=== PATIENT | female | born 1970 | race Caucasian/White ===

== ENCOUNTER → 2017-07-27 | Day surgery (SDC) | payer BC, OTHER ==
--- NOTE | 2017-07-31 00:28 | OP ---
DATE OF OPERATION: 07/27/2017 PREOPERATIVE DIAGNOSIS: Left breast mass, 4 o'clock, retroareolar. POSTOPERATIVE DIAGNOSIS: Left breast mass, 4 o'clock, retroareolar. PROCEDURE: Left ultrasound guided core biopsy with clip placement. ANESTHESIA: Local. ATTENDING SURGEON: Genevieve Traore M.D. ESTIMATED BLOOD LOSS: Minimal. COMPLICATIONS: None. PROCEDURE: Patient was made aware of the risks and benefits of the procedure and consented. She was placed in the supine position under sterile conditions with 1% lidocaine for local anesthesia. A small anna was made in the skin. Using a 10-gauge suction biopsy device from inferior lateral approach, under ultrasound guidance, multiple cores were obtained and sent to pathology. Likewise, under ultrasound guidance a U-shaped clip was placed into the biopsy region. Well tolerated by patient. Steri-Strips and a sterile bandage were applied. Will contact her with results. GENEVIEVE TRAORE M.D. [id number]
== END | disposition home or self-care (01) ==
LOC: FRADUS-SUR 12:58
PROVIDERS: ATTEND Surgery Surgical Oncology
PROC: 0HBU3ZX Excision of Left Breast, Percutaneous Approach, Diagnostic (ICD-10-PCS; principal; 2017-07-27)
DX: D48.62 Neoplasm of uncertain behavior of left breast (principal)
CPT/HCPCS: 19083; 87899; 88305-TC; 88342-TC; A4648

== ENCOUNTER 2018-02-08 07:33 | Day surgery (SDC) | payer BC, OTHER ==
[2018-02-07 11:09] VITALS: BMI 31.8
[2018-02-08] MEDS ORDERED: PROPOFOL 20 ML ONE ×3 (09:10)
[2018-02-08 10:13] VITALS: TEMP 97.9
[2018-02-08 10:58] VITALS: BP 119/73; PULSE 73
--- NOTE | 2018-02-11 16:18 | PATH ---
Surgical Pathology Report Patient Name: SILVIA ORTIZ [facility]. Rec. #: [id number] /Age/Gender: 1970 (Age: 47) / F Account: [id number] Location: [facility] Taken: 02/08/2018 Received: 02/08/2018 Reported: 02/11/2018 Physicians: Marilyn Caballero M.D. Specimen(s) Received A: BX 2ND PORTION DUODENUM AND BULB B: BX GASTRIC POLYPS C: BX STOMACH D: BX GE JUNCTION E: BX TRANSVERSE COLON POLYP Clinical History Heartburn, dyspepsia, history of colon polyps Postoperative diagnosis: Hiatal hernia, gastritis, GERD, polyp, diverticulosis Final Diagnosis A. SECOND PORTION DUODENUM AND BULB, BIOPSY: DUODENAL MUCOSA WITH MILD CHRONIC DUODENITIS. B. GASTRIC POLYPS, BIOPSY: GASTRIC FUNDIC GLAND POLYP. SEPARATE GASTRIC MUCOSA WITH NO DIAGNOSTIC ABNORMALITIES. IMMUNOSTAIN IS NEGATIVE FOR H. PYLORI ORGANISMS. C. STOMACH, BIOPSY: GASTRIC MUCOSA WITH NO DIAGNOSTIC ABNORMALITIES. IMMUNOSTAIN IS NEGATIVE FOR H. PYLORI ORGANISMS. D. GE JUNCTION, BIOPSY: ESOPHAGEAL (SQUAMOUS) MUCOSAL WITH MILD CHRONIC INFLAMMATION. E. TRANSVERSE COLON POLYP, BIOPSY: HYPERPLASTIC POLYP. Electronically Signed Deborah Novak M.D. Gross Description A. Received in formalin, labeled "second portion of duodenum and bulb" are 3 vizcaino, irregular portions of soft tissue ranging from 0.2-0.4 cm. in greatest dimension. The specimens are submitted in toto in one cassette. B. Received in formalin, labeled "gastric polyps" are 5 vizcaino, irregular portions of soft tissue ranging from 0.2-0.4 cm. in greatest dimension. The specimens are submitted in toto in one cassette. C. Received in formalin, labeled "biopsy stomach" are 4 vizcaino, irregular portions of soft tissue ranging from 0.3-0.4 cm. in greatest dimension. The specimens are submitted in toto in one cassette. D. Received in formalin, labeled "biopsy GE junction" are 2 vizcaino, irregular portions of soft tissue measuring 0.2 and 0.3 cm. in greatest dimension. The specimens are submitted in toto in one cassette. E. Received in formalin, labeled "biopsy polyp transverse colon" are 3 vizcaino, irregular portions of soft tissue ranging from 0.2-0.3 cm. in greatest dimension. The specimens are submitted in toto in one cassette. 02/08/201802/08/2018
== END 2018-02-08 11:07 | disposition home or self-care (01) ==
LOC: JASU-ENDO 07:33
PROVIDERS: ATTEND Internal Medicine Gastroenterology
PROC: 0DB98ZX Excision of Duodenum, Via Natural or Artificial Opening Endoscopic, Diagnostic (ICD-10-PCS; 2018-02-08)
PROC: 0DB68ZX Excision of Stomach, Via Natural or Artificial Opening Endoscopic, Diagnostic (ICD-10-PCS; 2018-02-08)
PROC: 0DB38ZX Excision of Lower Esophagus, Via Natural or Artificial Opening Endoscopic, Diagnostic (ICD-10-PCS; 2018-02-08)
PROC: 0DBL8ZX Excision of Transverse Colon, Via Natural or Artificial Opening Endoscopic, Diagnostic (ICD-10-PCS; principal; 2018-02-08 09:00)
DX: Z12.11 Encounter for screening for malignant neoplasm of colon (principal); Z86.010 Personal history of colon polyps; D12.3 Benign neoplasm of transverse colon; K57.30 Diverticulosis of large intestine without perforation or abscess without bleeding; K64.8 Other hemorrhoids; K21.9 Gastro-esophageal reflux disease without esophagitis; K44.9 Diaphragmatic hernia without obstruction or gangrene; K31.7 Polyp of stomach and duodenum; K29.70 Gastritis, unspecified, without bleeding
CPT/HCPCS: 84703; 88305-TC; 88342-TC

== ENCOUNTER 2019-06-02 08:56 | Emergency (ER) | payer OTHER, BC ==
[2019-06-02 09:06] VITALS: BP 128/65; PULSE 88; TEMP 98.2; BMI 29.0
--- NOTE | 2019-06-02 09:53 | PDOC ---
History of Present Illness - General Chief Complaint: Injury Stated Complaint: LT ANKLE INJURY Time Seen by Provider: 06/02/19 09:26 History Source: Patient - History of Present Illness Occurred: reports: this morning Lower Extremity Pain Location: left: foot Method of Injury: Yes: twisted Past History - Past Medical History Allergies/Adverse Reactions: Allergies Allergy/AdvReac Type Severity Reaction Status Date / Time No Known Allergies Allergy Verified 06/02/19 09:03 Home Medications: Ambulatory Orders Amlodipine Besylate [Norvasc] 2.5 mg PO DAILY tablet 07/21/14 Fluticasone Prop 0.05% Nasal [Flonase -] 1 spray NS DAILY 02/07/18 Hydrochlorothiazide 25 mg PO DAILY 02/07/18 Mag Carb/Aluminum Hydrox/Algin [Gaviscon Liquid] 15 - 30 ml PO Q6H PRN #355 oz 02/08/18 Ranitidine HCl [Zantac] 150 mg PO BID #30 tablet 02/08/18 Ranitidine [Zantac -] 150 mg PO BID #180 tablet 02/08/18 CVA: No COPD: No CHF: No GI Disorders: Yes (COLON POLYPS/ADENOMA, DIVERTICULOSIS, REFLUX) HTN: Yes Thyroid Disease: ( HYPOTHYROIDISM - RESOLVED) - Immunization History Immunization Up to Date: Yes - Psycho Social/Smoking Cessation Hx Smoking History: Never smoked Have you smoked in the past 12 months: No Information on smoking cessation initiated: No Hx Alcohol Use: No Drug/Substance Use Hx: No Substance Use Type: None Review of Systems - Review of Systems Musculoskeletal: Yes: Joint Pain, Joint Swelling *Physical Exam - Vital Signs Last Vital Signs Temp Pulse Resp BP Pulse Ox 98.2 F 88 16 128/65 97 06/02/19 09:03 06/02/19 09:03 06/02/19 09:03 06/02/19 09:03 06/02/19 09:03 - Physical Exam General Appearance: Yes: Appropriately Dressed. No: Apparent Distress HEENT: positive: Normal Voice Neck: positive: Supple Respiratory/Chest: negative: Respiratory Distress Extremity: positive: Normal Inspection, Tender (poorly localized ttp distal aspect of L foot, no swelling, ankle wnl) Integumentary: positive: Dry, Warm Neurologic: positive: Fully Oriented, Alert, Normal Mood/Affect ED Treatment Course - RADIOLOGY Radiology Studies Ordered: Category Date Time Status FOOT-LEFT [RAD] Stat Radiology 06/02/19 09:27 Taken Medical Decision Making - Medical Decision Making 06/02/19 10:37 49-year-old female, no significant history, here with left foot pain after twisting injury at work this a.m. Pain located mostly to the distal aspect of dorsum of foot, hurts to walk. Has since taken Advil see exam L foot sprain XR neg for fx Dc w/ OTC meds prn pain Discharge - Discharge Information Problems reviewed: Yes Clinical Impression/Diagnosis: Foot sprain Qualifiers: Encounter type: initial encounter Laterality: left Qualified Code(s): S93.602A - Unspecified sprain of left foot, initial encounter Condition: Good Disposition: HOME - Follow up/Referral Referrals: Cristian Gomez MD [Primary Care Provider] - - Patient Discharge Instructions Patient Printed Discharge Instructions: DI for Foot Sprain Additional Instructions: Foot x-ray shows no fracture. A foot sprain can take several days to a week or 2 to resolve Take Motrin or Tylenol as needed for the pain - Post Discharge Activity
== END 2019-06-02 09:51 | disposition home or self-care (01) ==
LOC: JERFT 08:56
DX: S93.602A Unspecified sprain of left foot, initial encounter (principal); W01.0XXA Fall on same level from slipping, tripping and stumbling without subsequent striking against object, initial encounter; Y93.01 Activity, walking, marching and hiking; Y92.238 Other place in hospital as the place of occurrence of the external cause; Y99.0 Civilian activity done for income or pay; I10 Essential (primary) hypertension; Z87.19 Personal history of other diseases of the digestive system
CPT/HCPCS: 73630-TC-LT; 99281-25

== ENCOUNTER → 2019-08-22 | Day surgery (SDC) | payer BC, OTHER ==
--- NOTE | 2019-08-25 13:45 | PATH ---
Surgical Pathology Report Patient Name: SILVIA ORTIZ [facility]. Rec. #: [id number] /Age/Gender: 1970 (Age: 49) / F Account: [id number] Location: [facility] Taken: 08/22/2019 Received: 08/22/2019 Reported: 08/25/2019 Physicians: Malathi Michelle M.D. Specimen(s) Received A: LEFT BREAST SPECIMEN - WITH CALCIFICATIONS B: LEFT BREAST SPECIMEN - WITHOUT CALCIFICATIONS Clinical History Nonpalpable lesion Mammographic findings: Microcalcification, suspicious Final Diagnosis A. BREAST, LEFT, WITH CALCIFICATIONS, STEREOTACTIC BIOPSY: ATYPICAL DUCTAL HYPERPLASIA (ADH) IN A BACKGROUND OF COLUMNAR CELL CHANGE WITH ASSOCIATED CALCIFICATIONS. B. BREAST, LEFT, WITHOUT CALCIFICATIONS, STEREOTACTIC BIOPSY: FOCAL ATYPICAL DUCTAL HYPERPLASIA (ADH). Electronically Signed Annie Barnard M.D. Gross Description A. Received in formalin labeled "left breast with calcifications," are 2 vizcaino-yellow, cylindrical portions of fibroadipose tissue averaging 1.8 cm in length and 0.4 cm in diameter. The specimens are submitted in toto in one cassette. B. Received in formalin labeled "left breast without calcifications," are 5 vizcaino-yellow, cylindrical portions of fibroadipose tissue ranging from 2.0-2.9 cm in length and averaging 0.3 cm in diameter. The specimens are submitted in toto in 2 cassettes. Time to formalin fixation: 5 minutes Total formalin fixation time: Approximately 8 hours. 08/22/2019 saudi08/22/2019
== END | disposition home or self-care (01) ==
LOC: FMAMMOTONE 09:03
PROVIDERS: ATTEND Obstetrics & Gynecology
PROC: 0HBU3ZX Excision of Left Breast, Percutaneous Approach, Diagnostic (ICD-10-PCS; principal; 2019-08-22)
DX: N60.92 Unspecified benign mammary dysplasia of left breast (principal); N64.89 Other specified disorders of breast; R92.1 Mammographic calcification found on diagnostic imaging of breast
CPT/HCPCS: 19081; 76098-TC-FY; 87899; 88305-TC; A4648

== ENCOUNTER 2019-09-12 10:31 | Day surgery (SDC) | payer BC ==
--- NOTE | 2019-09-11 10:55 | HP ---
Admitting History and Physical - Primary Care Physician PCP: Genevieve Traore - Admission Chief Complaint: Left breast atypia and calcifications History of Present Illness: 49 year old premenapausal female with recent mammogram 07/2019 showing a cluster of calcifications in the upper outer quadrant left breast. Stereotactic core biopsy 08/22/2019 revealed atypical ductal hyperplasia. History Source: Patient Limitations to Obtaining History: No Limitations - Past Medical History Cardiovascular: Yes: HTN ...LMP: 08/12/19 - Smoking History Smoking history: Never smoked Have you smoked in the past 12 months: No - Alcohol/Substance Use Hx Alcohol Use: Yes (SOCIAL) Home Medications - Allergies Allergies/Adverse Reactions: Allergies Allergy/AdvReac Type Severity Reaction Status Date / Time No Known Allergies Allergy Verified 09/09/19 17:47 - Home Medications Home Medications: Ambulatory Orders Amlodipine Besylate [Norvasc] 2.5 mg PO DAILY tablet 07/21/14 Hydrochlorothiazide 25 mg PO DAILY 02/07/18 Family Medical History Family Hx Cancer: Father (CLL) Physical Examination Constitutional: Yes: Well Nourished, No Distress Breast(s): Yes: Other (Breast are diffusely nodular bilaterally no palpable masses or adenopathy bilaterally) Problem List - Problems (1) Atypical ductal hyperplasia of left breast Problems reviewed: Yes Code(s): N60.92 - UNSPECIFIED BENIGN MAMMARY DYSPLASIA OF LEFT BREAST Assessment/Plan Left breast wide excision with mammogram needle localization
[2019-09-12 11:38] VITALS: BMI 29.2
[2019-09-12] MEDS ORDERED: MIDAZOLAM HCL 2 MG/2 ML SINGLE DOSE VIAL ONE (13:37)
[2019-09-12] MEDS ORDERED: SUCCINYLCHOLINE CHLORIDE 200 MG/10 ML SYRINGE ONE (13:37)
[2019-09-12] MEDS ORDERED: PROPOFOL 20 ML ONE ×2 (13:37)
[2019-09-12] MEDS ORDERED: LIDOCAINE HCL 1%, 10 MG/ML (20ML VIAL) ONE (13:39)
[2019-09-12] MEDS ORDERED: BUPIVACAINE HCL/PF 2.5 MG/ML - 30 ML VIAL IJ ONE (13:39)
[2019-09-12] MEDS ORDERED: oxyCODONE HCL 5 MG TABLET PO PRN ×2 (15:02)
[2019-09-12] MEDS ORDERED: ONDANSETRON 4 MG/2 ML VIAL IVPUSH PRN ×2 (15:02→15:19)
[2019-09-12] MEDS ORDERED: LACTATED RINGERS SOLUTION 1,000 ML IV SCH (15:15)
[2019-09-12] MEDS ORDERED: KETOROLAC TROMETHAMINE 30 MG/1 ML VIAL IVPUSH PRN (15:19)
[2019-09-12] MEDS ORDERED: DEXTROSE 5%-0.45% SALINE 1,000 ML IV SCH (15:30)
[2019-09-12] MEDS ORDERED: KETOROLAC TROMETHAMINE 30 MG/1 ML VIAL ONE (15:41)
[2019-09-12 17:25] VITALS: BP 112/68; PULSE 72; TEMP 97.9
--- NOTE | 2019-09-15 16:09 | OP ---
DATE OF OPERATION: 09/12/2019 PREOPERATIVE DIAGNOSIS: Left breast atypical ductal hyperplasia. POSTOPERATIVE DIAGNOSIS: Left breast atypical ductal hyperplasia. PROCEDURE: Left mammographically localized partial mastectomy. ANESTHESIA: General intubated. ATTENDING SURGEON: Dolores Martin MD [employer]OVEL LOG LOADER OPERATOR: GOOD Quezada ESTIMATED BLOOD LOSS: Minimal. COMPLICATIONS: None. DESCRIPTION OF PROCEDURE: Patient was made aware of the risks and benefits of the procedure and consented. She was placed in supine position after going to Radiology where a needle was placed next to the indexed lesion. After general anesthesia was induced, the patient was intubated. The operative site was prepped and draped in the usual sterile fashion. Curvilinear incision was made adjacent to the wire using electrocautery. Thick skin flaps were made. Using electrocautery, tissues were dissected down to the wire. The needle was drawn through the puncture site and a wire through the wound. Tissues around the wire were then sharply excised and submitted with a short suture superior, long suture lateral. Specimen radiograph confirmed the presence of the indexed lesion. The wound was copiously irrigated with normal saline. Hemostasis maintained by electrocautery. The cavity was then injected with 0.25% bupivacaine. It was then closed with deep 2-0 Vicryl followed by interrupted subdermal 3-0 Vicryl followed by running, subcuticular Monocryl. Steri-Strips and a sterile bandage were then applied, and the patient, having tolerated the procedure well, was transferred to the recovery room in excellent condition. DOLORES CALHOUN M.D. [id number]
--- NOTE | 2019-09-16 16:48 | PATH ---
Surgical Pathology Report Patient Name: SILVIA ORTIZ Med. Rec. #: [id number] /Age/Gender: 1970 (Age: 49) / F Account: [id number] [facility] Taken: 09/12/2019 Received: 09/12/2019 Reported: 09/16/2019 Physicians: Genevieve Traore M.D. Specimen(s) Received LEFT BREAST WIDE EXCISION Clinical History ADH Final Diagnosis Breast, left, wide excision: Benign breast tissue showing proliferative fibrocystic changes including cystic apocrine metaplasia, usual ductal hyperplasia (UDH), stromal fibrosis and columnar cell change with few associated calcifications. No residual atypical ductal hyperplasia (adH) is identified. Comment: See also prior core biopsy (D20-9). Electronically Signed Annie Barnard M.D. Gross Description Received in formalin, labeled "left breast wide excision," is a 2.6 x 2.5 x 2.0 cm. vizcaino-yellow, irregular, portion of fibroadipose tissue with a needle localization wire present. There is a short suture marking the superior aspect and a long suture marking the lateral aspect, per the surgeon. There is no skin present. The specimen is inked as follows: superior and lateral blue; inferior green; medial yellow; anterior red; deep black. The specimen is serially sectioned from medial to lateral. Sectioning reveals abundant dense, white, firm fibrous tissue. No definitive mass is identified. The specimen is entirely and sequentially submitted in 6 cassettes with the medial margin cassette 1 and lateral margin cassette 6. Time to formalin fixation: Not given Total formalin fixation time: Approximately 72 hours DL/09/15/2019 saudi/09/15/2019
== END 2019-09-12 17:15 | disposition home or self-care (01) ==
LOC: FASU 10:31
PROVIDERS: ATTEND Surgery Surgical Oncology
PROC: 0HBU0ZZ Excision of Left Breast, Open Approach (ICD-10-PCS; principal; 2019-09-12 14:31)
DX: N60.12 Diffuse cystic mastopathy of left breast (principal); N60.91 Unspecified benign mammary dysplasia of right breast; N60.32 Fibrosclerosis of left breast; N60.82 Other benign mammary dysplasias of left breast; N64.89 Other specified disorders of breast
CPT/HCPCS: 19281; 76098-TC-FY; 84703; 88307-TC; 94760

== ENCOUNTER 2022-02-06 11:37 | Emergency (ER) | payer BC, OTHER ==
[2022-02-06 11:46] VITALS: BP 125/73; PULSE 88; TEMP 97.9; BMI 28.3
[2022-02-06] MEDS ORDERED: BEBTELOVIMAB (EUA) 175 MG/2 ML VIAL IVPUSH ONE (12:02)
== END 2022-02-06 14:28 | disposition home or self-care (01) ==
LOC: JER 11:37
DX: U07.1 COVID-19 (principal)
CPT/HCPCS: 99284-25; C9803-CS; Q0222; U0003; U0005

== ENCOUNTER 2022-05-31 06:49 | Day surgery (SDC) | payer BC, OTHER ==
[2022-05-29 13:35] VITALS: BMI 30.9
[2022-05-31 11:33] VITALS: TEMP 97.8
[2022-05-31 12:42] VITALS: BP 121/70; PULSE 65; RESP 13
== END 2022-05-31 12:51 | disposition home or self-care (01) ==
LOC: JASU-ENDO 06:49
PROVIDERS: ATTEND Internal Medicine Gastroenterology
PROC: 0DB98ZX Excision of Duodenum, Via Natural or Artificial Opening Endoscopic, Diagnostic (ICD-10-PCS; 2022-05-31)
PROC: 0DB68ZX Excision of Stomach, Via Natural or Artificial Opening Endoscopic, Diagnostic (ICD-10-PCS; 2022-05-31)
PROC: 0DB48ZX Excision of Esophagogastric Junction, Via Natural or Artificial Opening Endoscopic, Diagnostic (ICD-10-PCS; 2022-05-31)
PROC: 0D5L8ZZ Destruction of Transverse Colon, Via Natural or Artificial Opening Endoscopic (ICD-10-PCS; principal; 2022-05-31 11:00)
DX: Z12.11 Encounter for screening for malignant neoplasm of colon (principal); Z86.010 Personal history of colon polyps; K64.8 Other hemorrhoids; K57.30 Diverticulosis of large intestine without perforation or abscess without bleeding; K21.9 Gastro-esophageal reflux disease without esophagitis; K44.9 Diaphragmatic hernia without obstruction or gangrene; K29.00 Acute gastritis without bleeding
CPT/HCPCS: 81025; 88305-TC; 88342-TC

== ENCOUNTER 2022-06-08 04:18 | Day surgery (SDC) | payer BC, OTHER ==
[2022-06-08] MEDS ORDERED: MIDAZOLAM HCL 2 MG/2 ML SINGLE DOSE VIAL ONE (13:19)
[2022-06-08] MEDS ORDERED: DEXAMETHASONE SOD PHOSPHATE 4 MG/1 ML VIAL ONE (13:19)
[2022-06-08] MEDS ORDERED: PROPOFOL 40 ML ONE (13:19)
[2022-06-08] MEDS ORDERED: KETOROLAC TROMETHAMINE 30 MG/1 ML VIAL ONE (13:19)
[2022-06-08] MEDS ORDERED: ONDANSETRON 4 MG/2 ML VIAL ONE (13:19)
[2022-06-08] MEDS ORDERED: LIDOCAINE HCL/PF 2% SDV 5ML VIAL ONE (13:19)
[2022-06-08] MEDS ORDERED: PROPOFOL 20 ML ONE (14:16)
[2022-06-08] MEDS ORDERED: IBUPROFEN 600 MG TABLET (FP) PO PRN (14:26)
[2022-06-08] MEDS ORDERED: IBUPROFEN 800 MG/8 ML IJ IVPB PRN (14:26)
[2022-06-08] MEDS ORDERED: oxyCODONE HCL 5 MG TABLET PO PRN (14:26)
[2022-06-08] MEDS ORDERED: ONDANSETRON 4 MG/2 ML VIAL IVPUSH PRN (14:26)
[2022-06-08] MEDS ORDERED: ELECTROLYTE-148 SOLN 1,000 ML IV SCH (14:30)
[2022-06-08] MEDS ORDERED: PROMETHAZINE HCL 25 MG/1 ML VIAL IVPUSH PRN (15:09)
[2022-06-08] MEDS ORDERED: LACTATED RINGERS SOLUTION 1,000 ML IV SCH (15:15)
[2022-06-08 16:26] VITALS: RESP 18
[2022-06-08 18:00] VITALS: BP 132/70; PULSE 90; TEMP 97.4
== END 2022-06-08 17:20 | disposition home or self-care (01) ==
LOC: JASU-SURG 04:18
PROVIDERS: ATTEND Obstetrics & Gynecology
PROC: 0UDB7ZZ Extraction of Endometrium, Via Natural or Artificial Opening (ICD-10-PCS; principal; 2022-06-08 14:00)
PROC: 0UJD8ZZ Inspection of Uterus and Cervix, Via Natural or Artificial Opening Endoscopic (ICD-10-PCS; 2022-06-08 14:00)
DX: N95.0 Postmenopausal bleeding (principal)
CPT/HCPCS: 88305-TC; 94760

== ENCOUNTER 2023-09-20 01:28 | Inpatient (IN) | payer BC, OTHER ==
[2023-09-20] MEDS ORDERED: ACETAMINOPHEN INJECTION 100 ML IVPB ONE (02:29)
[2023-09-20] MEDS ORDERED: LIDOCAINE 4% PATCH TP ONE (02:30)
[2023-09-20] MEDS: LIDOCAINE 5% TOPICAL PATCH TP ONE (02:47)
[2023-09-20] MEDS: ACETAMINOPHEN 1000 MG/100 ML BAG IVPB ONE ×2 (02:48→09:36)
[2023-09-20 03:01] LABS: BASO % 0.9 % (0-2.0); EOS % 4.5 % (0-4.5); HEMATOCRIT 37.3 % (32.4-45.2); HEMOGLOBIN 12.8 GM/dL (10.7-15.3); LYMPH % 22.9 % (8-40); MCH 29.1 pg (25.7-33.7); MCHC 34.4 g/dl (32.0-36.0); MEAN CELL VOLUME 84.8 fl (80-96); MEAN PLT VOLUME 8.4 fl (7.5-11.1); MONO % 7.5 % (3.8-10.2); NEUT % 64.2 % (42.8-82.8); PLATELET COUNT 229 10^3/uL (134-434); RBC 4.39 M/mm3 (3.60-5.2); RDW 13.6 % (11.6-15.6); WHITE BLOOD COUNT 12.5 K/mm3 (4.0-10.0)
[2023-09-20 03:13] LABS: POTASSIUM 3.2 mmol/L (3.5-5.1)
[2023-09-20 03:16] LABS: ALBUMIN 3.6 g/dl (3.4-5.0)
[2023-09-20 03:19] LABS: CREATININE 0.7 mg/dL (0.55-1.3)
[2023-09-20 03:20] LABS: BILIRUBIN,TOTAL 0.4 mg/dL (0.2-1); TOT PROT 7.5 g/dl (6.4-8.2)
[2023-09-20 03:38] LABS: PH,URINE 5.5 (5.0-8.0); URINE APPEARANCE CLEAR; URINE BILIRUBIN NEGATIVE (NEGATIVE); URINE COLOR YELLOW; URINE GLUCOSE (UA) NEGATIVE (NEGATIVE); URINE KETONE NEGATIVE (NEGATIVE); URINE LEUK ESTERASE NEGATIVE (NEGATIVE); URINE NITRITE NEGATIVE (NEGATIVE); URINE PROTEIN NEGATIVE (NEGATIVE); URINE UROBILINOGEN 0.2 mg/dL (0.2-1.0)
[2023-09-20] MEDS ORDERED: POTASSIUM CHLORIDE TABS 20 MEQ TABLET.ER (FP) PO ONE (04:01)
[2023-09-20] MEDS: POTASSIUM CHLORIDE TABS 20 MEQ TABLET.ER (FP) PO ONE (04:09)
[2023-09-20] MEDS ORDERED: METHOCARBAMOL 500 MG TABLET ONE (04:12)
[2023-09-20] MEDS: METHOCARBAMOL 750 MG TAB PO ONE (04:16)
[2023-09-20 05:06] LABS: INR 1.05 (0.83-1.09); PROTHROMBIN TIME (PATIENT) 12.2 SEC (9.7-13.0)
[2023-09-20 05:08] LABS: ACTIVATED PTT 21.7 SECONDS (25.2-36.5)
[2023-09-20] MEDS ORDERED: HEPARIN INFUSION - 25,000 UNITS/500 ML INFUS.BAG IVPB ONE (05:20)
[2023-09-20] MEDS: HEPARIN NA (PORCINE) 5,000 UNITS/ML 1ML VIAL IV ONE (05:43)
[2023-09-20] MEDS: HEPARIN INFUSION - 25,000 UNITS/500 ML INFUS.BAG IVPB SCH (05:46)
[2023-09-20 06:57] VITALS: BMI 34.4
[2023-09-20 07:01] LABS: MAGNESIUM 2.4 mg/dL (1.8-2.4)
[2023-09-20 07:05] LABS: PHOSPHOROUS 4.1 mg/dL (2.5-4.9)
[2023-09-20] MEDS ORDERED: ACETAMINOPHEN 325 MG TABLET (FP) PO PRN (07:36)
[2023-09-20] MEDS ORDERED: POTASSIUM CHLORIDE ORAL LIQUID 20 MEQ/15 ML PO ONE (07:37)
[2023-09-20] MEDS: HYDROCHLOROTHIAZIDE 12.5 MG CAPSULE (FP) PO SCH (09:43)
[2023-09-20] MEDS: POTASSIUM CHLORIDE TABS 10 MEQ TABLET.ER (FP) PO SCH (09:44)
[2023-09-20] MEDS: LIDOCAINE 4% PATCH TP SCH (09:44)
[2023-09-20] MEDS: VALSARTAN 80 MG TABLET PO SCH (09:44)
[2023-09-20] MEDS: PANTOPRAZOLE 40 MG TABLET PO SCH (09:44)
[2023-09-20 13:31] LABS: POTASSIUM 4.2 mmol/L (3.5-5.1)
[2023-09-20 13:32] LABS: CALCIUM 8.7 mg/dL (8.5-10.1)
[2023-09-20 13:33] LABS: BLOOD UREA NITROGEN 6.5 mg/dL (7-18)
[2023-09-20 13:36] LABS: CREATININE 0.6 mg/dL (0.55-1.3)
[2023-09-20] MEDS: HEPARIN NA (PORCINE) 5,000 UNITS/ML 1ML VIAL IVPUSH PRN (14:42)
[2023-09-20] MEDS ORDERED: ACETAMINOPHEN 1000 MG/100 ML BAG IVPB PRN (15:00)
[2023-09-20] MEDS: oxyCODONE HCL 5 MG TABLET PO PRN (16:23)
[2023-09-20] MEDS: ACETAMINOPHEN 1000 MG/100 ML BAG IVPB SCH (16:29)
[2023-09-20] MEDS: LIDOCAINE PATCH REMOVAL MC ONE (18:44)
[2023-09-20] MEDS: DOCUSATE SODIUM 100 MG CAPSULE (FP) PO SCH (22:02)
[2023-09-20] MEDS: LIDOCAINE PATCH REMOVAL MC SCH (22:03)
[2023-09-20] MEDS: MELATONIN 1 MG TABLET PO SCH (22:03)
[2023-09-21 06:27] LABS: BASO % 1.5 % (0-2.0); EOS % 7.7 % (0-4.5); HEMATOCRIT 35.9 % (32.4-45.2); LYMPH % 42.2 % (8-40); MCH 28.5 pg (25.7-33.7); MCHC 33.5 g/dl (32.0-36.0); MEAN CELL VOLUME 85.1 fl (80-96); MEAN PLT VOLUME 8.1 fl (7.5-11.1); MONO % 8.2 % (3.8-10.2); NEUT % 40.4 % (42.8-82.8); PLATELET COUNT 212 10^3/uL (134-434); RBC 4.21 M/mm3 (3.60-5.2); RDW 13.6 % (11.6-15.6); WHITE BLOOD COUNT 6.4 K/mm3 (4.0-10.0)
[2023-09-21 06:53] LABS: POTASSIUM 3.6 mmol/L (3.5-5.1)
[2023-09-21 06:55] LABS: ALBUMIN 3.3 g/dl (3.4-5.0); BLOOD UREA NITROGEN 7.8 mg/dL (7-18); CALCIUM 8.9 mg/dL (8.5-10.1)
[2023-09-21 06:58] LABS: CREATININE 0.5 mg/dL (0.55-1.3)
[2023-09-21 06:59] LABS: BILIRUBIN,TOTAL 0.3 mg/dL (0.2-1); TOT PROT 6.9 g/dl (6.4-8.2)
[2023-09-21] MEDS: HEPARIN NA (PORCINE) 5,000 UNITS/ML 1ML VIAL IVPUSH PRN (07:00)
[2023-09-21] MEDS: HYDROCHLOROTHIAZIDE 12.5 MG CAPSULE (FP) PO SCH (10:27)
[2023-09-21] MEDS: VALSARTAN 80 MG TABLET PO SCH (10:27)
[2023-09-21] MEDS: APIXABAN 5 MG TABLET PO SCH (15:37)
[2023-09-22 02:35] VITALS: RESP 20
[2023-09-22 07:06] VITALS: BP 119/66; PULSE 75; TEMP 98
== END 2023-09-22 10:30 | disposition home or self-care (01) | DRG 176 ==
LOC: JER 01:28 → JERBED 04:41 → J2W 06:14
PROVIDERS: ADMIT Internal Medicine; ATTEND Nurse Practitioner Family
DX: I26.99 Other pulmonary embolism without acute cor pulmonale (principal); I82.412 Acute embolism and thrombosis of left femoral vein; I82.432 Acute embolism and thrombosis of left popliteal vein; K21.9 Gastro-esophageal reflux disease without esophagitis; N62 Hypertrophy of breast; I10 Essential (primary) hypertension; D72.829 Elevated white blood cell count, unspecified; E87.6 Hypokalemia; R91.1 Solitary pulmonary nodule; D35.02 Benign neoplasm of left adrenal gland; K57.90 Diverticulosis of intestine, part unspecified, without perforation or abscess without bleeding
CPT/HCPCS: 0241U-QW; 36415; 71275-TC; 74177-TC; 80048; 80053; 81003; 83735; 84100; 85025; 85610; 85730; 87086; 93005; 93010; 93306-TC; 93970-TC; 99285-25; J0131; J1644